=== PATIENT | female | born 1965 | race Caucasian/White ===

== ENCOUNTER 2018-08-06 11:23 | Emergency (ER) | payer BC ==
[2018-08-06] MEDS: SODIUM CHLORIDE 0.9% 1L BAG IV* (12:09)
[2018-08-06 12:14] LABS: ADD MAN DIFF? NO
[2018-08-06] MEDS: AMPICILLIN/SULB 3 GM/NS (PMX) 100 ML IVPB (12:16)
[2018-08-06 12:17] LABS: BASOPHILS % 0.1 % (0.0-2.0); HEMATOCRIT 41.5 % (37.0-47.0); HEMOGLOBIN 12.6 g/dl (12.0-16.0); LYMPHOCYTES # 1.4 10^3/ul (0.8-2.9); LYMPHOCYTES % 11.1 % (15.0-51.0); MEAN CORPUSCULAR HEMOGLOBIN 23.4 pg (29.0-33.0); MEAN CORPUSCULAR HGB CONC 30.4 g/dl (32.0-37.0); MEAN CORPUSCULAR VOLUME 77.1 fl (82.0-101.0); MEAN PLATELET VOLUME 12.1 fl (7.4-10.4); MONOCYTE # 1.2 10^3/ul (0.3-0.9); MONOCYTES % 9.9 % (0.0-11.0); NEUTROPHIL # 9.6 10^3/ul (1.6-7.5); NEUTROPHILS % 78.4 % (39.0-77.0); PLATELET COUNT 295 10^3/UL (140-415); RED BLOOD COUNT 5.38 10^6/ul (4.20-5.40); RED CELL DISTRIBUTION WIDTH 16.7 % (11.5-14.5)
[2018-08-06 12:17] LABS: WHITE BLOOD COUNT 12.3 10^3/ul (4.8-10.8)
[2018-08-06] MEDS: ACETAMINOPHEN 500 MG TAB PO (12:23)
[2018-08-06] MEDS: KETOROLAC 30 MG INJ IV (12:23)
[2018-08-06 12:35] LABS: ALANINE AMINOTRANSFERASE 17 IU/L (13-69); ALBUMIN 4.2 g/dl (3.3-4.9); ALBUMIN/GLOBULIN RATIO 0.95; ALKALINE PHOSPHATASE 178 IU/L (42-121); ANION GAP 14 (5-13); ASPARTATE AMINO TRANSFERASE 18 IU/L (15-46); BILIRUBIN,INDIRECT 0.8 mg/dl (0-1.1); BILIRUBIN,TOTAL 0.8 mg/dl (0.2-1.3); BLOOD UREA NITROGEN 22 mg/dl (7-20); CALCIUM 9.3 mg/dl (8.4-10.2); CARBON DIOXIDE 24 mmol/L (21-31); CHLORIDE 103 mmol/L (97-110); CREATININE 0.82 mg/dl (0.44-1.00); Estimated GFR > 60 mL/min (>60); GLUCOSE 156 mg/dl (70-220); INR 1.09; PARTIAL THROMBOPLASTIN TIME 33.2 Sec (23.0-35.0); PROTIME 14.2 Sec (11.9-14.9); PT RATIO 1.1; SODIUM 141 mmol/L (135-144); TOTAL PROTEIN 8.6 g/dl (6.1-8.1)
[2018-08-06 12:46] LABS: TROPONIN-I < 0.012 ng/ml (0.000-0.120)
[2018-08-06] MEDS: CLINDAMYCIN 600 MG/D5W (PMX) 50 ML IVPB (12:56)
[2018-08-06] MEDS: IOHEXOL 300MG/ML 150 ML BTL (13:30)
[2018-08-06] MEDS: SOD CHLORIDE 0.9% 100 ML (13:30)
[2018-08-06] MEDS: morphine 4 MG/ML VIAL IV ×2 (13:40)
[2018-08-06] MEDS: ONDANSETRON 4 MG INJ IV (13:40)
== END 2018-08-06 14:58 | disposition home or self-care (01) ==
LOC: E/R 11:23
DX: K04.7 Periapical abscess without sinus (principal); I10 Essential (primary) hypertension; E10.9 Type 1 diabetes mellitus without complications; Z79.4 Long term (current) use of insulin
CPT/HCPCS: 36415; 70491; 71045; 80053; 83605; 84484; 85025; 85610; 85730; 87040-91; 93005; 96374; 96375; 99285-25